=== PATIENT | female | born 1970 | race Caucasian/White ===

== ENCOUNTER 2018-04-01 20:52 | Inpatient (IN) ==
[2018-04-01 21:23] LABS: Bilirubin,Urine Negative (Negative); Blood,Urine Negative (Negative); Clarity,Urine Clear (Clear); Color,Urine Yellow (Yellow); Glucose,Urine (UA) Normal (Normal); Ketones,Urine Negative (Negative); Leukocyte Esterase,Urine Negative (Negative); Nitrite,Urine Negative (Negative); Protein,Urine Negative (Neg-Trace); Urobilinogen,Urine Normal (Normal)
[2018-04-01 21:32] LABS: Amphetamine Screen,Urine Negative ng/mL (Cutoff=1000); Barbiturate Screen,Urine Negative ng/mL (Cutoff=200); Benzodiazepines Screen,Urine Negative ng/mL (Cutoff=200); Cannabinoid Screen,Urine Negative ng/mL (Cutoff = 50); Cocaine Screen,Urine Negative ng/mL (Cutoff= 300); Opiate Screen,Urine Negative ng/mL (Cutoff=300); Phencyclidine Screen,Urine Negative ng/mL (Cutoff=25)
--- NOTE | 2018-04-01 22:07 | Emergency Department Note ---
Disposition Clinical Impression: Suicidal ideation Disposition: Admitted As Inpatient Condition: Fair Referrals: NONE,PCP [Primary Care Provider] - Psych HPI - General Chief Complaint: ED Psychiatric Symptoms Stated Complaint: SI Time Seen by Provider: 04/01/18 21:50 Source: patient, family Mode of arrival: private vehicle Limitations: no limitations Nursing Notes Reviewed: Yes Vital Signs Reviewed: Yes - History of Present Illness HPI Narrative: Patient presents with family for eval and treatment of acutely worsening depression and recent suicidal ideation. She describes hx of similar about 2 yrs ago. Plan of self harm includes thoughts of cutting herself and / or overdosing on her home meds. Pt complaint: suicidal ideation If medical clearance, reason: psychiatric condition Onset (ago): month(s) (worse x 3 days) Duration: constant History of similar episodes: Yes Improves with: none Worsens with: none Context: significant life stressor Alleged intoxication: No Associated Psychiatric Symptoms: depression, suicidal ideation Associated symptoms: Reports: insomnia. Denies: confusion, headache, shortness of breath, nausea, vomiting, syncope Traumatic symptoms: denies traumatic injury Treatments prior to arrival: none Self harm or harm to others: admits thoughts of self harm, has plan - Related Data Home Medications Medication Instructions Recorded Confirmed Mirtazapine [Remeron] 15 mg PO HS 12/23/17 12/23/17 Oxcarbazepine [Oxtellar Xr] 300 mg PO DAILY 12/23/17 12/23/17 Venlafaxine XR (24 HR) [Effexor XR] 75 mg PO DAILY 12/23/17 12/23/17 clonazePAM [Klonopin] 1 mg PO BID 12/23/17 12/23/17 Previous Rx's Medication Instructions Recorded Azithromycin [Azithromycin 6-Tab 250 mg PO PER PKG DI #6 tab 12/23/17 Pack] Benzonatate [Tessalon] 100 mg PO TID #15 capsule 12/23/17 Fluticasone Propionate Nasal 120 spray NS DAILY #1 bottle 12/23/17 [Flonase] Allergies Allergy/AdvReac Type Severity Reaction Status Date / Time No Known Allergies Allergy Verified 12/23/17 19:27 All systems ED: reviewed and negative except as stated. Review of Systems: As Per HPI Constitutional: Denies: fever, chills, weakness, weight change, night sweats Eyes: Denies: eye pain, eye discharge, vision change Cardiovascular: Denies: chest pain, palpitations, dyspnea on exertion Respiratory: Denies: cough, dyspnea, wheezes Gastrointestinal: Denies: abdominal pain, nausea, vomiting, diarrhea Genitourinary: Denies: dysuria Musculoskeletal: Denies: back pain, neck pain, joint swelling, arthralgia Neurological: Denies: headache, weakness, confusion, vertigo Psychiatric: Reports: as per HPI, anxiety, depression, suicidal thoughts Hematological/Lymphatic: Denies: easy bleeding, easy bruising Past Medical History - Past Medical History Attestation: Yes The following information was validated with the patient. Source: patient Medical history: Reports: asthma Surgical history: Reports: non-contributory Psychiatric history: Reports: anxiety, depression - Social History Smoking Status: Never smoker Smokeless Tobacco Status: No Alcohol use: Reports: none Drug use: Reports: none Physical Exam - General Limitations: no limitations General appearance: alert, in no apparent distress, anxious - Head Head exam: atraumatic, normocephalic, normal inspection - Eye Eye exam: Present: normal appearance, PERRL. Absent: scleral icterus, conjunctival injection, periorbital swelling - ENT ENT exam: mucous membranes moist - Neck Neck exam: Present: normal inspection, full ROM, trachea midline. Absent: meningismus - Chest Chest inspection: Present: normal inspection - Respiratory Respiratory exam: Absent: respiratory distress - Cardiovascular Cardiovascular exam: Present: regular rate, normal rhythm, normal heart sounds - Extremities Exam Extremities exam: Present: normal inspection - Expanded Lower Extremity Exam Gait: observed and normal - Neurological Exam Neurological exam: Present: alert, oriented X3, CN II-XII intact, normal gait - Psychiatric Psychiatric exam: Present: normal affect, normal mood - Skin Skin exam: Present: warm, dry, intact, normal color Course Course Narrative: Patient presents for evaluation by michael zuleta due to increasing depression and suicidal ideation for the last three days. She describes no changes in medications, but an increase in life stressors. She described in detail her suicidal thoughts and plans. She has not yet acted on any of the plans. Screening labs are normal. She is calm and cooperative. Physical exam, normal. Patient was evaluated by the michael zuleta nurse who consulted with the psychiatrist. They have recommended admission. Patient is agreeable with this plan. - Consultations Consultation #1: Discussed the case with Christen, one a charge nurse. She states that currently she is only nurse on the floor who is able to do consults and she is also in charge so she cannot leave the floor. She has called bed management to ask for someone to come to the floor to watch the patient's. She did take the consult request and information and states that she will have someone come to the ER for the consult as soon as possible. However, she does not know how long it will be before that can happen. Time: 23:15 Vital Signs Temperature 97.8 F 04/01/18 20:54 Pulse Rate 91 04/01/18 20:54 Respiratory Rate 20 04/01/18 20:54 Blood Pressure 164/108 04/01/18 20:54 O2 Sat by Pulse Oximetry 97 04/01/18 20:54 Temperature 97.8 F 04/01/18 20:54 Pulse Rate 91 04/01/18 20:54 Respiratory Rate 20 04/01/18 20:54 Blood Pressure 164/108 04/01/18 20:54 O2 Sat by Pulse Oximetry 97 04/01/18 20:54 Oxygen Delivery Oxygen Delivery Room Air Psych - Lab Data Result diagrams: 04/01/18 21:46 04/01/18 21:46 Lab Results 04/01/18 04/01/18 04/01/18 Range/Units 21:02 21:02 21:46 WBC 12.0 H (4.3-11.1) K/mcL RBC 4.49 (3.82-4.97) M/mcL Hgb 12.4 (11.5-15.4) g/dL Hct 39.4 (35.3-44.9) % MCV 87.8 (83.0-100.0) fL MCH 27.6 L (28.0-33.3) pg MCHC 31.5 L (31.6-35.5) g/dL RDW 15.4 H (11.5-14.5) % Plt Count 265 (140-400) K/mcL MPV 10.1 (9.4-12.4) fL Immature Gran % 0.9 (0-4) % Seg Neutrophils % 67.7 % Lymphocytes % 25.0 % Monocytes % 3.4 % Eosinophils % 2.7 % Basophils % 0.3 % Neutrophils # 8.1 (1.6-8.9) K/mcL Lymphocytes # 3.0 (0.6-4.6) K/mcL Monocytes # 0.4 (0.0-1.3) K/mcL Eosinophils # 0.3 (0.0-0.6) K/mcL Basophils # 0.0 (0.0-0.2) K/mcL Sodium (136-145) mEq/L Potassium (3.5-5.1) mEq/L Chloride (98-107) mEq/L Carbon Dioxide (23-29) mEq/L BUN (6-20) mg/dL Creatinine (0.60-1.20) mg/dL Est GFR ( Amer) (> 60) Est GFR (Non-Af Amer) (> 60) BUN/Creatinine Ratio (6-26) Glucose (70-105) mg/dL Calculated Osmolality (280-300) Calcium (8.6-10.3) mg/dL Urine Color Yellow (Yellow) Urine Clarity Clear (Clear) Urine pH 6.0 (5.0-8.0) pH Units Ur Specific [place] 1.010 (1.010-1.025) Urine Protein Negative (Neg-Trace) mg/dL Urine Glucose (UA) Normal (Normal) mg/dL Urine Ketones Negative (Negative) mg/dL Urine Blood Negative (Negative) Urine Nitrite Negative (Negative) Urine Bilirubin Negative (Negative) Urine Urobilinogen Normal (Normal) mg/dL Ur Leukocyte Esterase Negative (Negative) Salicylates (15.0-30.0) mg/dL Urine Opiates Screen Negative (Khyaxh=810) ng/mL Acetaminophen (10-20) mcg/mL Ur Barbiturates Screen Negative (Jqpfgl=034) ng/mL Ur Phencyclidine Scrn Negative (Cutoff=25) ng/mL Ur Amphetamines Screen Negative (Cxvyac=8430) ng/mL U Benzodiazepines Scrn Negative (Ytffoc=970) ng/mL Urine Cocaine Screen Negative (Cutoff= 300) ng/mL U Marijuana (THC) Screen Negative (Cutoff = 50) ng/mL Ur Drug Screen Interp See Below Ethyl Alcohol (Less than 10) mg/dL 04/01/18 Range/Units 21:46 WBC (4.3-11.1) K/mcL RBC (3.82-4.97) M/mcL Hgb (11.5-15.4) g/dL Hct (35.3-44.9) % MCV (83.0-100.0) fL MCH (28.0-33.3) pg MCHC (31.6-35.5) g/dL RDW (11.5-14.5) % Plt Count (140-400) K/mcL MPV (9.4-12.4) fL Immature Gran % (0-4) % Seg Neutrophils % % Lymphocytes % % Monocytes % % Eosinophils % % Basophils % % Neutrophils # (1.6-8.9) K/mcL Lymphocytes # (0.6-4.6) K/mcL Monocytes # (0.0-1.3) K/mcL Eosinophils # (0.0-0.6) K/mcL Basophils # (0.0-0.2) K/mcL Sodium 137 (136-145) mEq/L Potassium 4.0 (3.5-5.1) mEq/L Chloride 102 (98-107) mEq/L Carbon Dioxide 24 (23-29) mEq/L BUN 7 (6-20) mg/dL Creatinine 0.77 (0.60-1.20) mg/dL Est GFR ( Amer) > 60 (> 60) Est GFR (Non-Af Amer) > 60 (> 60) BUN/Creatinine Ratio 9 (6-26) Glucose 101 (70-105) mg/dL Calculated Osmolality 282 (280-300) Calcium 9.3 (8.6-10.3) mg/dL Urine Color (Yellow) Urine Clarity (Clear) Urine pH (5.0-8.0) pH Units Ur Specific [place] (1.010-1.025) Urine Protein (Neg-Trace) mg/dL Urine Glucose (UA) (Normal) mg/dL Urine Ketones (Negative) mg/dL Urine Blood (Negative) Urine Nitrite (Negative) Urine Bilirubin (Negative) Urine Urobilinogen (Normal) mg/dL Ur Leukocyte Esterase (Negative) Salicylates < 2.5 L (15.0-30.0) mg/dL Urine Opiates Screen (Doyais=902) ng/mL Acetaminophen < 10 L (10-20) mcg/mL Ur Barbiturates Screen (Bafzhr=424) ng/mL Ur Phencyclidine Scrn (Cutoff=25) ng/mL Ur Amphetamines Screen (Jglvim=9025) ng/mL U Benzodiazepines Scrn (Tzzmmu=636) ng/mL Urine Cocaine Screen (Cutoff= 300) ng/mL U Marijuana (THC) Screen (Cutoff = 50) ng/mL Ur Drug Screen Interp Ethyl Alcohol < 10 (Less than 10) mg/dL Psychiatric Medical Clearance - Medical Clearance Checklist Does the patient have a NEW psychiatric condition?: No Any abnormalities indicating possible medical illness?: No Any history of medical issues?: No Medical History: No Social History Section defined Any abnormal vital signs prior to transfer?: Yes Current Vitals: Last Vital Signs Temp 97.8 F 04/01/18 20:54 Pulse 91 04/01/18 20:54 Resp 20 04/01/18 20:54 BP 164/108 04/01/18 20:54 Pulse Ox 97 04/01/18 20:54 Is the patient intoxicated or cognitively impaired?: No Psychiatric Lab Panel: Drug Levels and Toxicity 04/01/18 04/01/18 21:02 21:46 Urine Opiates Screen Negative Acetaminophen < 10 L Ur Barbiturates Screen Negative Ur Phencyclidine Scrn Negative Ur Amphetamines Screen Negative U Benzodiazepines Scrn Negative Urine Cocaine Screen Negative U Marijuana (THC) Screen Negative Ethyl Alcohol < 10 Any abnormalities on the physical exam?: No Any abnormal labs?: No Abnormal Labs: Abnormal lab results WBC 12.0 K/mcL (4.3-11.1) H 04/01/18 21:46 MCH 27.6 pg (28.0-33.3) L 04/01/18 21:46 MCHC 31.5 g/dL (31.6-35.5) L 04/01/18 21:46 RDW 15.4 % (11.5-14.5) H 04/01/18 21:46 Salicylates < 2.5 mg/dL (15.0-30.0) L 04/01/18 21:46 Acetaminophen < 10 mcg/mL (10-20) L 04/01/18 21:46 Does the patient require durable medical equiptment?: No Is the patient ambulatory?: Yes Is the patient a fall risk?: No Has the patient been medically cleared?: Yes Any acute medical condition require Tx prior to transfer?: No Statement of Medical Clearance: I have evaluated the patient, reviewed diagnostic information, and certify that the patient's medical condition is sufficiently stable that transfer to the psychiatric unit does not pose a significant risk of deterioration.
[2018-04-01 22:20] LABS: Basophils % 0.3 %; Eosinophils # 0.3 K/mcL (0.0-0.6); Eosinophils % 2.7 %; Hematocrit 39.4 % (35.3-44.9); Hemoglobin 12.4 g/dL (11.5-15.4); Immature Granulocytes % 0.9 % (0-4); Mean Corpuscular HGB Conc 31.5 g/dL (31.6-35.5); Mean Corpuscular Hemoglobin 27.6 pg (28.0-33.3); Mean Corpuscular Volume 87.8 fL (83.0-100.0); Mean Platelet Volume 10.1 fL (9.4-12.4); Monocytes # 0.4 K/mcL (0.0-1.3); Monocytes % 3.4 %; Neutrophils # 8.1 K/mcL (1.6-8.9); Platelet Count 265 K/mcL (140-400); Red Blood Count 4.49 M/mcL (3.82-4.97); Red Cell Distribution Width 15.4 % (11.5-14.5); Segmented Neutrophils % 67.7 %
[2018-04-01 22:40] LABS: Acetaminophen < 10 mcg/mL (10-20); BUN/Creatinine Ratio 9 (6-26); Blood Urea Nitrogen 7 mg/dL (6-20); Calcium 9.3 mg/dL (8.6-10.3); Carbon Dioxide 24 mEq/L (23-29); Chloride 102 mEq/L (98-107); Ethanol < 10 mg/dL (Less than 10); Glucose 101 mg/dL (70-105); Osmolality,Calculated 282 (280-300); Salicylate < 2.5 mg/dL (15.0-30.0); Sodium 137 mEq/L (136-145); eGFR For Non-African Americans > 60 (> 60)
[2018-04-02] MEDS ORDERED: Mag Hydrox/Al Hydrox/Simeth 30 ML UDC PO PRN (00:39)
[2018-04-02] MEDS ORDERED: Acetaminophen 325 MG TABLET PO PRN (00:39)
[2018-04-02] MEDS ORDERED: traZODone 50 MG TABLET PO PRN (00:39)
[2018-04-02] MEDS ORDERED: *HR* LORazepam 1 MG TABLET PO PRN (00:39)
[2018-04-02] MEDS ORDERED: Haloperidol Lactate 5 MG/ML VIAL IM PRN (00:39)
[2018-04-02] MEDS ORDERED: MOM Conc 10 ML UD.LIQ PO PRN (00:39)
[2018-04-02] MEDS ORDERED: *HR* LORazepam 2 MG/ML VIAL IM PRN (00:39)
[2018-04-02] MEDS: hydrOXYzine pamoate 25 MG CAPSULE PO PRN ×2 (10:01→19:08)
--- NOTE | 2018-04-02 12:55 | Psychiatry History & Physical ---
Date of Encounter: 04/02/18 Time of Encounter: 12:30 History of Present Illness Patient Stated Chief Complaint: I thought of taking an overdose, but I decided to come in Medicare Admission Attestation: For traditional Medicare patients the provided hospital inpatient services are reasonable and necessary and in the case of services not specified as inpatient -only under 42 CFR 419.22 (n), that they are appropriately provided as inpatient services in accordance 42 CFR 412.3. For Critical Access Hospital the patient may reasonably be expected to be discharged or transferred to a hospital within 96 hours after admission to the Critical Access Hospital. Admitted From: Emergency Dept Plans for Post Hospital Care: Home History of Present Illness: Ms. Garcia is a 47 year old female . The patient has been treated previously with medicine for major depression. She is new to this practice. Chief complaint "I thought of taking an overdose and then decided to come in. The patient had an episode of depression. She thought about taking an overdose for medicines she held pills in her hand. History of present illness:. The patient was having problems with major depression. This current episode has occurred over a period of stay months and she has been followed by Dr. Castro. The patient has been treated with multiple medicines but has been either sedated or not getting good enough sleep based on the medicine. The patient received counseling and recently started counseling. This is been successful and has been local. The patient reports having problems with depression where she sought treatment from age [age] and ever since then. As a child she recalls being depressed and she cried when her older sister went away to college. The patient started treatment with medication in her 20s. She had counseling in the past. The patient [place] [facility] in [facility] and seen a local psychologist who recommended [facility] for medication management with Dr. Holley. 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 This is very stimulating job according to the patient. Depressive symptoms include low self- esteem diminished interest guilt low energy poor concentration poor appetite diminished exercise. She is not getting enough sleep and not getting restful sleep she had fleeting SI but no plans. The patient did have an image prior to this either in a panic attack or another episode she saw undermines I slashing and seeing her hands with pills in them and taking them all and say getting a sense of relief afterwards. This image past but there are no hallucinations no delusions. There are no previous suicide attempts. The patient has no manic symptoms of 3 or more days duration. DI GF AST was negative. The patient has no impulsivity and has been checked. Treatment in the past included transcranial magnetic stimulation and after this was administered the patient felt that she did better. A booster session was discussed but was not felt to be necessary to pursue the patient is at never had ECT never had ketamine infusion and never had a vagus nerve stimulator. About 10 years ago the patient had a sleep study this showed grade for snoring. She was given a CPAP 10 years ago but has had no follow-up since and does not use his CPAP now. The patient has had G InSight testing and while she did not have this with her it suggests that she needs a combination of therapy according to her treating physician. Past medical history surgery: Gallbladder endometrial ablation cyst removal from ovaries she is AB0 with no recent gynecologic follow-up. No recent menstrual period. Illnesses: Asthma checks for diabetes and hypertension were negative previous diagnosis of snoring was given. Allergies NKDA. She uses Claritin for allergies. Family history mother depression maternal grandmother depression brother depression attempted suicide currently being treated with antidepressants. He also has sleep apnea. Sister diagnosed depression versus ADHD. Negative for alcohol negative for drugs negative for suicide. Son with autistic disorder epilepsy and learning deficit. Social history the patient grew up in [place]. She attended [employer] and graduated with honors she went to [employer]. She later went to [employer]. She has a BS in nursing.. The patient has been for 24 years this is her second marriage for first marriage was only 1 year long. The 3 children of the marriage live at the home although her 18 year-old has gone to college. There are no guns there are some knives there are no explosives or other lethal means in the home. She is in between PCP. Review of systems significant for amenorrhea arthritis in her knees and back some shortness of breath. Past Med Surg Social Fam HX - Past Medical History Medical history: asthma - Past Psychiatric History Psychiatric history: Reports: previous psychiatric hospitalization Past psychiatric history details: The patient was hospitalized on 1 a 8-10 years ago 2 times [facility] in 2012 and [facility] in 2014 Family psychiatric history: Yes Family History of Suicide: Attempted - Past Surgical History Surgical History: non-contributory, cholecystectomy, other - Social History Smoking Status: Never smoker Smokeless Tobacco Status: No Alcohol use: none Drug use: none Occupational status: employed Current living situation: Home - Independent, With Family Activity Level: Independent ambulation Recent Out of Country Travel Within the Last 8 Weeks: No Exposure or Possible Exposure to Illness During Travel: No Medications & Allergies Mirtazapine [Remeron] 30 mg PO HS 12/23/17 [History] Oxcarbazepine [Oxtellar Xr] 300 mg PO DAILY 12/23/17 [History] Venlafaxine XR (24 HR) [Effexor XR] 300 mg PO DAILY 12/23/17 [History] clonazePAM [Klonopin] 0.5 mg PO TID PRN 12/23/17 [History] 3 Allergy/AdvReac Type Severity Reaction Status Date / Time No Known Allergies Allergy Verified 12/23/17 19:27 Review of Systems Constitutional: Denies: fever, chills, weakness, weight change Eyes: Denies: eye pain, vision change Ears, Nose, Throat: Denies: ear pain, throat pain, dental pain, hearing loss, congestion Cardiovascular: Denies: chest pain, palpitations, dyspnea on exertion Respiratory: Denies: cough, dyspnea, wheezes Gastrointestinal: Denies: abdominal pain, nausea, vomiting, diarrhea, constipation Genitourinary female: Reports: other. Denies: urgency, dysuria, frequency, abnormal menses, dyspareunia Musculoskeletal: Reports: joint pain, myalgia. Denies: joint swelling Integumentary: Denies: rash, lesions, pruritus Neurological: Denies: headache, weakness, numbness, memory loss Psychiatric: Reports: depression, abnormal sleep pattern, suicidal ideation, anhedonia, memory loss, difficulty concentrating Endocrine: Denies: fatigue, heat or cold intolerance Hematologic/Lymphatic: Denies: easy bruising, lymphadenopathy Allergic/Immunologic: Denies: urticaria, itchy eyes Exam - HEENT Head exam IM: Present: atraumatic Eye exam IM: Present: EOMI, normal appearance, PERRL ENT exam IM: Present: normal exam - Neurological Neurological exam: Present: CN II-XII intact - Respiratory Respiratory exam IM: Present: CTAB - GI/Abdominal GI/Abdominal exam IM: Present: normal bowel sounds, soft. Absent: tenderness - Extremities Extremities exam IM: Present: full ROM - Skin Skin exam IM: Present: dry, warm - Additional Information Additional Information: The patient is an obese female. She had a physician advisor exam with female RN present. This was a limited exam. - Constitutional Vitals: Temp Pulse Resp BP Pulse Ox 98.0 F 98 14 146/98 97 04/02/18 09:00 04/02/18 09:00 04/02/18 09:00 04/02/18 09:00 04/01/18 20:54 General appearance: age & developmentally appropriate, well-groomed, well- nourished - Musculoskeletal Gait: normal Station: relaxed Strength & Tone: normal for patient - Psychiatric Patient Orientation: Yes Person, Yes Time, Yes Place Level of alertness: Alert Behavior: calm, cooperative Psychomotor activity: Normal Eye Contact: Maintains Eye Contact Mood Description: Euthymic/stable Affect description: congruent with mood Speech Volume: Soft/Quiet Speech pattern: normal rate, normal rhythm, normal tone, fluent, spontaneous Language & Vocabulary: consistent with education Thought Process: Linear, Goal Oriented Thought Content: Yes Suicidal ideation, No Homicidal ideation, No Overt delusions Perceptual Disturbances: No Auditory hallucinations, No Visual hallucinations Attention Span Ability: Capable of Sustained Attention Memory Description: Grossly Intact Patient Reliability: Reliable Historian Fund of knowledge: Yes abstraction ability, Yes average, Yes aware of current events Intelligence Estimate: Above [place] Judgment: Fair Insight: Partial Results - Labs Labs: Laboratory Last Values WBC 12.0 K/mcL (4.3-11.1) H 04/01/18 21:46 RBC 4.49 M/mcL (3.82-4.97) 04/01/18 21:46 Hgb 12.4 g/dL (11.5-15.4) 04/01/18 21:46 Hct 39.4 % (35.3-44.9) 04/01/18 21:46 MCV 87.8 fL (83.0-100.0) 04/01/18 21:46 MCH 27.6 pg (28.0-33.3) L 04/01/18 21:46 MCHC 31.5 g/dL (31.6-35.5) L 04/01/18 21:46 RDW 15.4 % (11.5-14.5) H 04/01/18 21:46 Plt Count 265 K/mcL (140-400) 04/01/18 21:46 MPV 10.1 fL (9.4-12.4) 04/01/18 21:46 Immature Gran % 0.9 % (0-4) 04/01/18 21:46 Seg Neutrophils % 67.7 % 04/01/18 21:46 Lymphocytes % 25.0 % 04/01/18 21:46 Monocytes % 3.4 % 04/01/18 21:46 Eosinophils % 2.7 % 04/01/18 21:46 Basophils % 0.3 % 04/01/18 21:46 Neutrophils # 8.1 K/mcL (1.6-8.9) 04/01/18 21:46 Lymphocytes # 3.0 K/mcL (0.6-4.6) 04/01/18 21:46 Monocytes # 0.4 K/mcL (0.0-1.3) 04/01/18 21:46 Eosinophils # 0.3 K/mcL (0.0-0.6) 04/01/18 21:46 Basophils # 0.0 K/mcL (0.0-0.2) 04/01/18 21:46 Sodium 137 mEq/L (136-145) 04/01/18 21:46 Potassium 4.0 mEq/L (3.5-5.1) 04/01/18 21:46 Chloride 102 mEq/L (98-107) 04/01/18 21:46 Carbon Dioxide 24 mEq/L (23-29) 04/01/18 21:46 BUN 7 mg/dL (6-20) 04/01/18 21:46 Creatinine 0.77 mg/dL (0.60-1.20) 04/01/18 21:46 Est GFR ( Amer) > 60 (> 60) 04/01/18 21:46 Est GFR (Non-Af Amer) > 60 (> 60) 04/01/18 21:46 BUN/Creatinine Ratio 9 (6-26) 04/01/18 21:46 Glucose 101 mg/dL (70-105) 04/01/18 21:46 Calculated Osmolality 282 (280-300) 04/01/18 21:46 Calcium 9.3 mg/dL (8.6-10.3) 04/01/18 21:46 Urine Color Yellow (Yellow) 04/01/18 21:02 Urine Clarity Clear (Clear) 04/01/18 21:02 Urine pH 6.0 pH Units (5.0-8.0) 04/01/18 21:02 Ur Specific [place] 1.010 (1.010-1.025) 04/01/18 21:02 Urine Protein Negative mg/dL (Neg-Trace) 04/01/18 21: Urine Glucose (UA) Normal mg/dL (Normal) 04/01/18 21: Urine Ketones Negative mg/dL (Negative) 04/01/18 21: Urine Blood Negative (Negative) 04/01/18 21: Urine Nitrite Negative (Negative) 04/01/18 21: Urine Bilirubin Negative (Negative) 04/01/18 21: Urine Urobilinogen Normal mg/dL (Normal) 04/01/18 21: Ur Leukocyte Esterase Negative (Negative) 04/01/18 21:02 Salicylates < 2.5 mg/dL (15.0-30.0) L 04/01/18 21:46 Urine Opiates Screen Negative ng/mL (Fjgvap=303) 04/01/18 21:02 Acetaminophen < 10 mcg/mL (10-20) L 04/01/18 21:46 Ur Barbiturates Screen Negative ng/mL (Obkuwj=676) 04/01/18 21:02 Ur Phencyclidine Scrn Negative ng/mL (Cutoff=25) 04/01/18 21:02 Ur Amphetamines Screen Negative ng/mL (Ueqtjy=7065) 04/01/18 21:02 U Benzodiazepines Scrn Negative ng/mL (Agntlq=122) 04/01/18 21:02 Urine Cocaine Screen Negative ng/mL (Cutoff= 300) 04/01/18 21:02 U Marijuana (THC) Screen Negative ng/mL (Cutoff = 50) 04/01/18 21: Ur Drug Screen Interp See Below 04/01/18 21: Ethyl Alcohol < 10 mg/dL (Less than 10) 04/01/18 21:46 Assessment and Plan (1) Major depressive disorder, recurrent severe without psychotic features Current visit: Yes Status: Acute Plan: Admit inpatient for safety and stabilization, Close observation, Suicide Precautions per unit protocol, Encourage participation in unit milieu, Group Therapy, Monitor sleep, Monitor appetite, Secure weapons, Family/Supportive other meeting Risks, benefits, side effects, alternatives discussed w/pt: Yes Patient agreeable to treatment: Yes Plans for Post Hospital Care: Home Estimated Length of Stay (Days): 5 (2) Suicidal ideation Current visit: Yes Status: Acute Plan: Admit inpatient for safety and stabilization, Close observation, Suicide Precautions per unit protocol, Encourage participation in unit milieu, Secure weapons Risks, benefits, side effects, alternatives discussed w/pt: Yes Patient agreeable to treatment: Yes Plans for Post Hospital Care: Home () (3) Snoring Current visit: Yes Status: Chronic Plan: Admit inpatient for safety and stabilization ( ), Close observation ( ), Monitor sleep Risks, benefits, side effects, alternatives discussed w/ pt: No Patient agreeable to treatment: No Plans for Post Hospital Care: Home
[2018-04-02] MEDS: Ibuprofen 400 MG TABLET PO PRN (21:26)
[2018-04-02] MEDS: clonazePAM 0.5 MG TABLET PO SCH (21:27)
[2018-04-02] MEDS: OXcarbazepine 150 MG TABLET PO SCH (21:27)
[2018-04-02] MEDS: Mirtazapine 15 MG TABLET PO SCH (21:27)
[2018-04-03] MEDS: OXcarbazepine 150 MG TABLET PO SCH ×2 (09:04→21:29)
[2018-04-03] MEDS: clonazePAM 0.5 MG TABLET PO SCH ×2 (09:05→21:29)
[2018-04-03] MEDS: Venlafaxine XR (24 HR) 150 MG CAP.ER.24H PO SCH (09:05)
[2018-04-03] MEDS: hydrOXYzine pamoate 25 MG CAPSULE PO PRN (13:37)
--- NOTE | 2018-04-03 15:49 | Psychiatry Progress Note ---
Date of Encounter: 04/03/18 Time of Encounter: 14:30 Subjective Interval history: The patient is a 47-year-old white female. She has been admitted for major depression. Chief complaint I still had problems I woke up and I stumbled. . The patient reports that she had ongoing suicidal ideation. Low mood. Last night she became anxious she needed Vistaril. She slept 8 hours during the night she was observed and had loud nasal snoring but no significant stopping breathing. Admitted the patient also reported that she had been placed in a different environment in her work and this required to be in the basement and not get out for daytime ambient light. Some worsening his occurred over this. Time. She was on a diet that was helpful and weight loss but main have gained back some weight. The upper sleep scale was reviewed again as well as information from inspired her sleep therapy and [facility]. The patient I discussed option which is to augment with stimulant. The stimulant is available on formulary as methylphenidate. She will first dose today and doses again tomorrow. Side effects of the current medicines were also discussed Review of Systems Psychiatric: Reports: depression, abnormal sleep pattern, suicidal ideation, anhedonia, change in libido, memory loss, difficulty concentrating Results - Vital Signs Vital Signs: Temp Pulse Resp BP Pulse Ox 97.8 F 93 16 126/81 97 04/03/18 09:00 04/03/18 09:00 04/03/18 09:00 04/03/18 09:00 04/01/18 20:54 Assessment and Plan (1) Major depressive disorder, recurrent severe without psychotic features Current visit: Yes Status: Acute Plan: Continue hospitalization, Close observation, Suicide Precautions per unit protocol, Encourage participation in unit milieu, Group Therapy, Monitor sleep, Monitor appetite, Secure weapons Risks, benefits, side effects, alternatives discussed w/pt: Yes Patient agreeable to treatment: Yes (2) Suicidal ideation Current visit: Yes Status: Acute Plan: Suicide Precautions per unit protocol, Monitor sleep, Secure weapons Risks, benefits, side effects, alternatives discussed w/pt: Yes Patient agreeable to treatment: Yes (3) Snoring Current visit: Yes Status: Chronic Risks, benefits, side effects, alternatives discussed w/pt: No Patient agreeable to treatment: No Consult Discharge Plan - Plan Psychiatry Exam - Constitutional Vitals: Temp Pulse Resp BP Pulse Ox 97.8 F 93 16 126/81 97 04/03/18 09:00 04/03/18 09:00 04/03/18 09:00 04/03/18 09:00 04/01/18 20:54 General appearance: age & developmentally appropriate, well-groomed, well- nourished - Musculoskeletal Gait: normal, slow Station: stooped Strength & Tone: normal for patient - Psychiatric Patient Orientation: Yes Person, Yes Time, Yes Place Level of alertness: Alert Behavior: calm, cooperative Psychomotor activity: Normal Eye Contact: Maintains Eye Contact Mood Description: Depressed Affect description: congruent with mood, dysphoric, anxious Speech Volume: Normal Speech pattern: normal rate, normal rhythm, normal tone, fluent, spontaneous Language & Vocabulary: consistent with education Thought Process: Linear, Goal Oriented Thought Content: Yes Suicidal ideation, No Homicidal ideation, No Overt delusions Perceptual Disturbances: No Auditory hallucinations, No Visual hallucinations Attention Span Ability: Capable of Focused Attention Memory Description: Grossly Intact Patient Reliability: Reliable Historian Fund of knowledge: Yes abstraction ability, Yes above average, Yes aware of current events Intelligence Estimate: Above Avergage Judgment: Fair Insight: Partial
[2018-04-03] MEDS: Methylphenidate HCl 10 MG TABLET PO SCH (16:08)
[2018-04-03] MEDS: Mirtazapine 15 MG TABLET PO SCH (21:29)
[2018-04-04] MEDS: Venlafaxine XR (24 HR) 150 MG CAP.ER.24H PO SCH (09:48)
[2018-04-04] MEDS: Methylphenidate HCl 10 MG TABLET PO SCH ×2 (09:48→12:56)
[2018-04-04] MEDS: clonazePAM 0.5 MG TABLET PO SCH ×2 (09:48→21:14)
[2018-04-04] MEDS: OXcarbazepine 150 MG TABLET PO SCH ×2 (09:48→21:14)
--- NOTE | 2018-04-04 14:44 | Psychiatry Progress Note ---
Date of Encounter: 04/04/18 Time of Encounter: 14:00 Subjective Interval history: ID: 47 you white female for MDD CC: I still feel depressed HPI: the patient has tolerated the methylphenidate. She remains depressed and things about suicide, but has no plans to commit suicide on the unit. She has been tearful at times. her parents came to visit. she has tolerated meds but is excessively tired. She would be willing to increase the methylphenidate. She would like to reduce or discontinue the mirtazepine. Review of Systems Psychiatric: Reports: depression, abnormal sleep pattern, suicidal ideation, anhedonia, change in libido, memory loss, difficulty concentrating Results - Vital Signs Vital Signs: Temp Pulse Resp BP Pulse Ox 97.9 F 88 18 146/91 97 04/04/18 09:00 04/04/18 09:00 04/04/18 09:00 04/04/18 09:00 04/01/18 20:54 Assessment and Plan (1) Major depressive disorder, recurrent severe without psychotic features Current visit: Yes Status: Acute Plan: Continue hospitalization, Close observation, Suicide Precautions per unit protocol, Encourage participation in unit milieu, Group Therapy, Monitor sleep, Monitor appetite, Secure weapons, Family/Supportive other meeting Risks, benefits, side effects, alternatives discussed w/pt: Yes Patient agreeable to treatment: Yes (2) Suicidal ideation Current visit: Yes Status: Acute Plan: Suicide Precautions per unit protocol, Secure weapons Risks, benefits, side effects, alternatives discussed w/pt: Yes Patient agreeable to treatment : Yes (3) Snoring Current visit: Yes Status: Chronic Plan: Monitor sleep, Other Risks, benefits, side effects, alternatives discussed w/pt: No Patient agreeable to treatment: No Consult Discharge Plan - Plan Referrals: [facility] [Outside] - 04/08/18 6:00 pm (The above appointment is with Xi Pineda for outpatient mental health counseling services.) [facility] [Outside] (The above appointment is with Dr. Gutierrez for outpatient psychiatric assesment and medication management services.) Psychiatry Exam - Constitutional Vitals: Temp Pulse Resp BP Pulse Ox 97.9 F 88 18 146/91 97 04/04/18 09:00 04/04/18 09:00 04/04/18 09:00 04/04/18 09:00 04/01/18 20:54 General appearance: age & developmentally appropriate, well-groomed, well- nourished, obese - Musculoskeletal Gait: normal Station: relaxed Strength & Tone: normal for patient - Psychiatric Patient Orientation: Yes Person, Yes Time, Yes Place Level of alertness: Alert Behavior: calm, cooperative, nervous, anxious Psychomotor activity: Slowed Eye Contact: Maintains Eye Contact Mood Description: Depressed Affect description: congruent with mood, dysphoric Speech Volume: Normal Speech pattern: normal rate, normal rhythm, normal tone, fluent, spontaneous Language & Vocabulary: consistent with education Thought Process: Linear, Goal Oriented Thought Content: Yes Suicidal ideation, No Homicidal ideation, No Overt delusions Perceptual Disturbances: No Auditory hallucinations, No Visual hallucinations Attention Span Ability: Capable of Focused Attention Memory Description: Grossly Intact Patient Reliability: Reliable Historian Fund of knowledge: Yes abstraction ability, Yes aware of current events Intelligence Estimate: Average Judgment: Limited Insight: Minimal
[2018-04-04] MEDS: Ibuprofen 400 MG TABLET PO PRN (14:50)
[2018-04-04] MEDS: hydrOXYzine pamoate 25 MG CAPSULE PO PRN (21:14)
[2018-04-05] MEDS: OXcarbazepine 150 MG TABLET PO SCH (08:47)
[2018-04-05] MEDS: Venlafaxine XR (24 HR) 150 MG CAP.ER.24H PO SCH (08:47)
[2018-04-05] MEDS: Methylphenidate HCl 10 MG TABLET PO SCH ×2 (08:47→12:56)
[2018-04-05] MEDS: clonazePAM 0.5 MG TABLET PO SCH ×2 (08:47→21:09)
--- NOTE | 2018-04-05 10:22 | Psychiatry Progress Note ---
Date of Encounter: 04/05/18 Time of Encounter: 10:00 Subjective Interval history: ID the patient is a 47-year-old white female with major depression. Chief complaint I became irritable last night I begin to yell at people. I feel tired and slowed down. I feel like I have to lay down. I am still sort of foggy in the head and not sure my thinking is clear. History of present illness: The patient has had continued depressive symptoms. While efforts of been made to try and secure her home environment she still has suicidal ideations still feels depressed. Patient would like to continue the trial of methylphenidate as it has helped her for period of time but she had 2 doses yesterday and she noted some wearing off or other phenomenon associated with irritability. This could be the return of mood. In addition her depression is so bad and should he is so low that she once to cry but cannot cry. Suicidal ideation and family concerns continue to be a focus treatment. The patient has been participating groups and cooperating in treatment she has been concerned about family members. This patient has been on oxcarbazepine and while she has not had lab abnormalities such as low-sodium she has had sedation. Throughout this hospitalization we have been able to lower the dose a little bit and she agrees to reduce the oxcarbazepine 1 more dose. The history of the oxcarbazepine added for mood stabilization was given. The patient cannot give an episode of senia or hypomania or excessive energy. She has no history of switch has no diagnoses of bipolar disorder. Therefore the clinical indication for oxcarbazepine is unclear at this time although rationale why a mood stabilizer would be adequate for the treatment of major depression was discussed with the patient patient verbalized understanding. I talked about the possibility of a switch or antidepressant-induced senia and stimulant-induced senia as a side effect Nonetheless the patient is willing to increase methylphenidate 20 mg twice a day. I will write a prescription for methylphenidate at 20 mg twice a day. This will be #60 no refill have checked the state pharmacy report. I will call Dr. Castro and leave a message in his office. His number is [phone] Review of Systems Psychiatric: Reports: depression, abnormal sleep pattern, suicidal ideation, anhedonia, change in libido, memory loss, difficulty concentrating, irritability , mood swings Results - Vital Signs Vital Signs: Temp Pulse Resp BP Pulse Ox 97.8 F 94 18 137/97 97 04/05/18 08:19 04/05/18 08:19 04/05/18 08:19 04/05/18 08:19 04/01/18 20:54 Assessment and Plan (1) Major depressive disorder, recurrent severe without psychotic features Current visit: Yes Status: Acute Plan: Continue hospitalization, Close observation, Suicide Precautions per unit protocol, Encourage participation in unit milieu, Group Therapy, Monitor sleep, Monitor appetite, Secure weapons, Family/Supportive other meeting Risks, benefits, side effects, alternatives discussed w/pt: Yes Patient agreeable to treatment: Yes (2) Suicidal ideation Current visit: Yes Status: Acute Plan: Encourage participation in unit milieu, Secure weapons Risks, benefits, side effects, alternatives discussed w/pt: Yes Patient agreeable to treatment : Yes (3) Snoring Current visit: Yes Status: Chronic Plan: Monitor sleep Risks, benefits, side effects, alternatives discussed w/pt : No Patient agreeable to treatment: No Consult Discharge Plan - Plan Referrals: [facility] [Outside] - 04/08/18 6:00 pm (The above appointment is with Xi Pineda for outpatient mental health counseling services.) [facility] [Outside] (The above appointment is with Dr. Gutierrez for outpatient psychiatric assesment and medication management services.) Psychiatry Exam - Constitutional Vitals: Temp Pulse Resp BP Pulse Ox 97.8 F 94 18 137/97 97 04/05/18 08:19 04/05/18 08:19 04/05/18 08:19 04/05/18 08:19 04/01/18 20:54 General appearance: age & developmentally appropriate, well-groomed, well- nourished, obese - Musculoskeletal Gait: slow Station: relaxed Strength & Tone: normal for patient - Psychiatric Patient Orientation: Yes Person, Yes Time, Yes Place Level of alertness: Alert Behavior: calm, cooperative Psychomotor activity: Slowed Eye Contact: Maintains Eye Contact Mood Description: Euthymic/stable, Depressed Affect description: congruent with mood, constricted, dysphoric Speech Volume: Normal Speech pattern: normal rate, normal rhythm, normal tone, fluent, spontaneous Language & Vocabulary: consistent with education Thought Process: Linear, Goal Oriented Thought Content: Yes Suicidal ideation, No Homicidal ideation, No Overt delusions Perceptual Disturbances: No Auditory hallucinations, No Visual hallucinations Attention Span Ability: Capable of Focused Attention Memory Description: Grossly Intact Patient Reliability: Reliable Historian Fund of knowledge: Yes abstraction ability, Yes aware of current events Intelligence Estimate: Above Avergage Judgment: Limited Insight: Minimal
[2018-04-05] MEDS: Ibuprofen 400 MG TABLET PO PRN (20:05)
[2018-04-06] MEDS: Methylphenidate HCl 10 MG TABLET PO SCH ×2 (09:13→12:43)
[2018-04-06] MEDS: clonazePAM 0.5 MG TABLET PO SCH (09:14)
[2018-04-06] MEDS: OXcarbazepine 150 MG TABLET PO SCH (09:14)
[2018-04-06] MEDS: Venlafaxine XR (24 HR) 150 MG CAP.ER.24H PO SCH (09:14)
--- NOTE | 2018-04-06 11:40 | Psychiatry Progress Note ---
Date of Encounter: 04/06/18 Time of Encounter: 11:37 Subjective Interval history: Chart reviewed, case discussed was nursing staff. Patient seen for follow-up. Staff report she had crying episodes when she calls a family. I reviewed her medication, she experienced insomnia, some irritability and mood fluctuations and crying. I shared this patient that this could be side effects of Ritalin which is new medication to her. It was given to improve her energy level and depression. I discussed with the patient benefits and side effects and interaction of medication including Klonopin and Trileptal. Otherwise patient is pleasant and cooperative denies suicidal ideation and anxious to go home. Review of Systems Psychiatric: Reports: depression, abnormal sleep pattern, suicidal ideation, anhedonia, change in libido, memory loss, difficulty concentrating, irritability , mood swings Results - Vital Signs Vital Signs: Temp Pulse Resp BP Pulse Ox 98.8 F 93 18 141/87 97 04/06/18 09:00 04/06/18 09:00 04/06/18 09:04/06/18 09:00 04/01/18 20:54 Assessment and Plan (1) Major depressive disorder, recurrent severe without psychotic features Current visit: Yes Status: Acute Plan: Continue hospitalization, Close observation, Suicide Precautions per unit protocol, Encourage participation in unit milieu, Group Therapy, Monitor sleep, Monitor appetite Additional Plan: We will discontinue Klonopin to enhance the response to methylphenidate and decided whether beneficial or causing irritability and insomnia. Patient is agreeable to medication changes. We will continue to monitor Risks, benefits, side effects, alternatives discussed w/pt: Yes Patient agreeable to treatment: Yes Consult Discharge Plan - Plan Referrals: [facility] [Outside] - 04/08/18 6:00 pm (The above appointment is with Xi Pineda for outpatient mental health counseling services.) [facility] [Outside] - 04/11/18 3:30 pm (The above appointment is with Dr. Gutierrez for outpatient psychiatric assesment and medication management services. This is the first available appointment. Office staff will contact you if there is an lithopone mill worker or later in the day appointment available.) Psychiatry Exam - Constitutional Vitals: Temp Pulse Resp BP Pulse Ox 98.8 F 93 18 141/87 97 04/06/18 09:00 04/06/18 09:00 04/06/18 09:00 04/06/18 09:00 04/01/18 20:54 General appearance: age & developmentally appropriate, well-groomed, well- nourished, obese - Musculoskeletal Gait: normal Station: relaxed Strength & Tone: normal for patient - Psychiatric Patient Orientation: Yes Person, Yes Time, Yes Place Level of alertness: Alert Behavior: calm, cooperative Psychomotor activity: Normal Eye Contact: Maintains Eye Contact Mood Description: Depressed, Anxious, Labile, Irritable Affect description: congruent with mood, labile Speech Volume: Normal Speech pattern: normal rate, normal rhythm, normal tone, fluent, spontaneous Language & Vocabulary: consistent with education Thought Process: Linear, Goal Oriented Thought Content: No Suicidal ideation, No Homicidal ideation, No Overt delusions Perceptual Disturbances: No Auditory hallucinations, No Visual hallucinations Attention Span Ability: Capable of Focused Attention Memory Description: Grossly Intact Patient Reliability: Reliable Historian Fund of knowledge: Yes abstraction ability, Yes aware of current events Intelligence Estimate: Average Judgment: Limited Insight: Partial
[2018-04-06] MEDS: hydrOXYzine pamoate 25 MG CAPSULE PO PRN (21:07)
[2018-04-06] MEDS: Ibuprofen 400 MG TABLET PO PRN (21:07)
[2018-04-07] MEDS: Venlafaxine XR (24 HR) 150 MG CAP.ER.24H PO SCH (08:40)
[2018-04-07] MEDS: Methylphenidate HCl 10 MG TABLET PO SCH ×2 (08:40→12:10)
[2018-04-07] MEDS: OXcarbazepine 150 MG TABLET PO SCH (08:41)
--- NOTE | 2018-04-07 12:43 | Psychiatry Progress Note ---
Date of Encounter: 04/07/18 Time of Encounter: 11:45 Subjective Interval history: Patient seen for follow-up. Case discussed was nursing staff. Staff report patient is tolerating medication changes she had a good night sleep, no reports of agitation or anxiety, some irritability. She reports no improvement in her energy level or motivation. She is concerned about her going back to work and I advised that it will be discussed at the time of discharge. Otherwise patient denies suicidal ideation and anxious to be discharged to see her family. Denies any significant side effects of medication. Review of Systems Psychiatric: Reports: depression, abnormal sleep pattern, suicidal ideation, anhedonia, change in libido, memory loss, difficulty concentrating, irritability , mood swings Results - Vital Signs Vital Signs: Temp Pulse Resp BP Pulse Ox 98.1 F 87 16 140/89 97 04/07/18 09:00 04/07/18 09:00 04/07/18 09:00 04/07/18 09:00 04/01/18 20:54 Assessment and Plan (1) Major depressive disorder, recurrent severe without psychotic features Current visit: Yes Status: Acute Plan: Continue hospitalization, Close observation, Suicide Precautions per unit protocol, Encourage participation in unit milieu, Group Therapy, Monitor sleep, Monitor appetite Risks, benefits, side effects, alternatives discussed w/pt: Yes Patient agreeable to treatment: Yes Consult Discharge Plan - Plan Referrals: [facility] [Outside] - 04/08/18 6:00 pm (The above appointment is with Xi Pineda for outpatient mental health counseling services.) [facility] [Outside] - 04/11/18 3:30 pm (The above appointment is with Dr. Gutierrez for outpatient psychiatric assesment and medication management services. This is the first available appointment. Office staff will contact you if there is an music publicist or later in the day appointment available.) Psychiatry Exam - Constitutional Vitals: Temp Pulse Resp BP Pulse Ox 98.1 F 87 16 140/89 97 04/07/18 09:00 04/07/18 09:00 04/07/18 09:00 04/07/18 09:00 04/01/18 20:54 General appearance: age & developmentally appropriate, well-groomed, well- nourished, obese - Musculoskeletal Gait: normal Station: relaxed Strength & Tone: normal for patient - Psychiatric Patient Orientation: Yes Person, Yes Time, Yes Place Level of alertness: Alert Behavior: calm, cooperative, anxious Psychomotor activity: Normal Eye Contact: Maintains Eye Contact Mood Description: Euthymic/stable Affect description: congruent with mood, full range Speech Volume: Normal Speech pattern: normal rate, normal rhythm, normal tone, fluent, spontaneous Language & Vocabulary: consistent with education Thought Process: Linear, Goal Oriented Thought Content: No Suicidal ideation, No Homicidal ideation, No Overt delusions Perceptual Disturbances: No Auditory hallucinations, No Visual hallucinations Attention Span Ability: Capable of Focused Attention Memory Description: Grossly Intact Patient Reliability: Reliable Historian Fund of knowledge: Yes abstraction ability, Yes aware of current events Intelligence Estimate: Average Judgment: Limited Insight: Partial
[2018-04-07] MEDS: Ibuprofen 400 MG TABLET PO PRN (15:43)
[2018-04-07] MEDS: hydrOXYzine pamoate 25 MG CAPSULE PO PRN (15:43)
[2018-04-08] MEDS: OXcarbazepine 150 MG TABLET PO SCH (08:43)
[2018-04-08] MEDS: Venlafaxine XR (24 HR) 150 MG CAP.ER.24H PO SCH (08:43)
[2018-04-08] MEDS: Methylphenidate HCl 10 MG TABLET PO SCH ×2 (08:44→11:28)
[2018-04-08 11:13] VITALS: BP 137/89
--- NOTE | 2018-04-08 11:14 | Discharge Summary ---
Date of Encounter: 04/08/18 Time of Encounter: 11:09 Diagnosis - Discharge Diagnosis (1) Major depressive disorder, recurrent severe without psychotic features Status: Acute Medications - Discharge Medications Prescriptions: Oxcarbazepine [Oxtellar Xr] 300 mg PO DAILY #30 tab.er.24h Venlafaxine XR (24 HR) [Effexor XR] 300 mg PO DAILY #120 cap.er.24h Mirtazapine [Remeron] 30 mg PO HS 12/23/17 [History] clonazePAM [Klonopin] 0.5 mg PO TID PRN 12/23/17 [History] Oxcarbazepine [Oxtellar Xr] 300 mg PO DAILY #30 tab.er.24h 04/08/18 [Rx] Venlafaxine XR (24 HR) [Effexor XR] 300 mg PO DAILY #120 cap.er.24h 04/08/18 [Rx ] 3 Allergy/AdvReac Type Severity Reaction Status Date / Time No Known Allergies Allergy Verified 12/23/17 19:27 Provider Date of admission: 04/02/18 00:37 Primary care physician: PCP NONE Consults: 04/03/18 09:44 Consult to Pastoral Services [CONS] Routine Comment: Discharging clinician: Cesar Laird Psychiatry Exam - Constitutional Vitals: Temp Pulse Resp BP Pulse Ox 99.1 F 85 18 145/90 97 04/07/18 21:00 04/07/18 21:00 04/07/18 21:00 04/07/18 21:00 04/01/18 20:54 General appearance: obese - Musculoskeletal Gait: normal Station: relaxed Strength & Tone: normal for patient - Psychiatric Patient Orientation: Yes Person, Yes Time, Yes Place Level of alertness: Alert Behavior: calm, cooperative, anxious Psychomotor activity: Normal Eye Contact: Maintains Eye Contact Mood Description: Euthymic/stable Affect description: congruent with mood, full range Speech Volume: Normal Speech pattern: normal rate, normal rhythm, normal tone, fluent, spontaneous Language & Vocabulary: consistent with education Thought Process: Linear, Goal Oriented Thought Content: No Suicidal ideation, No Homicidal ideation, No Overt delusions Perceptual Disturbances: No Auditory hallucinations, No Visual hallucinations Attention Span Ability: Capable of Focused Attention Memory Description: Grossly Intact Patient Reliability: Reliable Historian Fund of knowledge: Yes abstraction ability, Yes aware of current events Intelligence Estimate: Above Avergage Judgment: Limited Insight: Partial Hospital Course Hospital course: Ms. Garcia is a 47 year old female admitted for depression and suicidal ideation. For details of the admission please see H&P On the unit the patient medication were reviewed and adjusted by Dr. Felipe, she continued on Effexor, Trileptal Klonopin and then methylphenidate was added to improve patient's motivation and energy, patient reported insomnia and some irritability a side effect from the methylphenidate and Klonopin was held's to clarify patient responds to medication changes. She decided to continue to use methylphenidate and discuss continuation off treatment with her outpatient psychiatrist. I also recommended that she can use the Klonopin as needed for anxiety. Patient participated in groups and interacted appropriately with staff and peers. Patient was concerned about family issues and work stress she was able to verbalize her concern and discuss it with the staff and with . patient also is considering career change in the near future and well motivated to pursue. Prior to discharge the patient was medically stable she was tolerating medication without any side effects, she denied any suicidal thoughts or self harming. She was anxious to be discharged and see her family. Discharge plans were completed by social work including psychiatric follow-up and patient is discharged in stable condition. - Time Spent with Patient Total time spent providing and/or coordinating discharge services: Greater than 30 minutes Assessment and Plan - Patient/Caregiver Discharge Instructions Activity: resume usual activities as tolerated Diet: regular diet - Follow up Plan Follow up with: [facility] [Outside] - 04/08/18 6:00 pm (The above appointment is with Xi Pineda for outpatient mental health counseling services.) [facility] [Outside] - 04/11/18 3:30 pm (The above appointment is with Dr. Gutierrez for outpatient psychiatric assesment and medication management services. This is the first available appointment. Office staff will contact you if there is an service consultant or later in the day appointment available.) Functional capacity at discharge: independent ambulation Overall status at discharge: Stable Disposition: Home, Self-Care Quality - Multiple Antipsychotics Patient discharged on 2 or more antipsychotic medications: No Procedures - Procedures Procedures: Medication Management, Crisis Stabilization, Supportive Therapy, Group Therapy, Psychoeducational Therapy
[2018-04-08] MEDS: hydrOXYzine pamoate 25 MG CAPSULE PO PRN (11:28)
== END 2018-04-08 15:00 | disposition home or self-care (01) | DRG 885 ==
LOC: EMEROOARM 20:52 → 1ANU 04-02 00:37 → SUATTDRO 04-02 00:37 → 1ANU 04-02 01:14
PROVIDERS: ADMIT Psychiatry & Neurology Forensic Psychiatry; ATTEND Psychiatry & Neurology Psychiatry